=== PATIENT | female | born 1945 | race American Indian/Alaskan Native ===

== ENCOUNTER 2017-05-31 01:19 | Emergency (ER) | payer OTHER ==
--- NOTE | 2017-05-31 02:18 | Emergency Department Report ---
ED CPR HPI - General Chief Complaint: Cardiac Arrest/CPR Stated Complaint: CARDIAC ARREST Time Seen by Provider: 05/31/17 01:49 Source: EMS Mode of arrival: Stretcher Limitations: Other - History of Present Illness Initial Comments: Patient is a 72-year-old Female who called 911 because of several hours of shortness of breath and chest discomfort. Patient's granddaughter stated she was having so much trouble breathing. She asked her to call 911. Patient once in the ambulance was having significant air hunger paramedics tried CPAP briefly but the patient lost consciousness and lost her pulse. Patient was intubated had a brief run of V. fib and was defibrillated once in route. Has been established as of this time. - Related Data Home Medications Medication Instructions Recorded Confirmed Last Taken Aspirin [Aspirin BABY CHEW TAB] 81 mg PO DAILY 02/06/15 02/06/15 Unknown Dexlansoprazole (Nf) [Dexilant 60 mg PO DAILY 02/06/15 02/06/15 Unknown (Nf)] Insulin Lispro Prot/Lispro 1 1000units .ROUTE BID 02/06/15 02/06/15 Unknown [HumaLOG Mix 75/25 Vial] Oxycodone HCl/Acetaminophen 10 mg PO PRN PRN 02/06/15 02/06/15 Unknown [Percocet 10/325 mg] Rosuvastatin (Nf) [Crestor] 10 mg PO HS 02/06/15 02/06/15 Unknown Valsartan/Hydrochlorothiazide 160 mg PO DAILY 02/12/15 02/12/15 Unknown Previous Rx's Medication Instructions Recorded Last Taken Type Aspirin [Aspirin BABY CHEW TAB] 81 mg PO DAILY tab.chew 02/13/15 Unknown Rx AtorvaSTATin [Lipitor] 20 mg PO QHS #30 tablet 02/13/15 Unknown Rx Clopidogrel Bisulfate [Plavix] 75 mg PO DAILY #30 tablet 02/13/15 Unknown Rx Clopidogrel [Plavix] 75 mg PO QDAY #30 tablet 02/13/15 Unknown Rx Gabapentin [Neurontin] 100 mg PO BID #60 capsule 02/13/15 Unknown Rx Hydrochlorothiazide [HCTZ] 25 mg PO QDAY #30 tablet 02/13/15 Unknown Rx Pantoprazole [Protonix TAB] 40 mg PO DAILY #30 tablet 02/13/15 Unknown Rx Valsartan [Diovan] 160 mg PO DAILY #30 tablet 02/13/15 Unknown Rx hydrALAZINE [Apresoline TAB] 50 mg PO Q8HR #90 tablet 02/13/15 Unknown Rx oxyCODONE /ACETAMINOPHEN [Percocet 1 tab PO Q6H PRN #60 tablet 02/13/15 Unknown Rx 5/325 mg] Allergies Allergy/AdvReac Type Severity Reaction Status Date / Time No Known Allergies Allergy Unverified 07/11/13 13:49 ED Review of Systems ROS: Stated complaint: CARDIAC ARREST Other details as noted in HPI Comment: Unobtainable due to pts medical conditions ED Past Medical Hx - Past Medical History Previous Medical History?: Yes Hx Hypertension: Yes Hx Diabetes: Yes - Surgical History Past Surgical History?: Yes Hx Breast Surgery: Yes () - Social History Smoking Status: Unknown if ever smoked - Medications Home Medications: Home Medications Medication Instructions Recorded Confirmed Last Taken Type Aspirin [Aspirin BABY CHEW TAB] 81 mg PO DAILY 02/06/15 02/06/15 Unknown History Dexlansoprazole (Nf) [Dexilant 60 mg PO DAILY 02/06/15 02/06/15 Unknown History ([place])] Insulin Lispro Prot/Lispro 1 1000units .ROUTE BID 02/06/15 02/06/15 Unknown History [HumaLOG Mix 75/25 Vial] Oxycodone HCl/Acetaminophen 10 mg PO PRN PRN 02/06/15 02/06/15 Unknown History [Percocet 10/325 mg] Rosuvastatin (Nf) [Crestor] 10 mg PO HS 02/06/15 02/06/15 Unknown History Valsartan/Hydrochlorothiazide 160 mg PO DAILY 02/12/15 02/12/15 Unknown History Aspirin [Aspirin BABY CHEW TAB] 81 mg PO DAILY tab.chew 02/13/15 Unknown Rx AtorvaSTATin [Lipitor] 20 mg PO QHS #30 tablet 02/13/15 Unknown Rx Clopidogrel Bisulfate [Plavix] 75 mg PO DAILY #30 tablet 02/13/15 Unknown Rx Clopidogrel [Plavix] 75 mg PO QDAY #30 tablet 02/13/15 Unknown Rx Gabapentin [Neurontin] 100 mg PO BID #60 capsule 02/13/15 Unknown Rx Hydrochlorothiazide [HCTZ] 25 mg PO QDAY #30 tablet 02/13/15 Unknown Rx Pantoprazole [Protonix TAB] 40 mg PO DAILY #30 tablet 02/13/15 Unknown Rx Valsartan [Diovan] 160 mg PO DAILY #30 tablet 02/13/15 Unknown Rx hydrALAZINE [Apresoline TAB] 50 mg PO Q8HR #90 tablet 02/13/15 Unknown Rx oxyCODONE /ACETAMINOPHEN [Percocet 1 tab PO Q6H PRN #60 tablet 02/13/15 Unknown Rx 5/325 mg] ED Physical Exam - General Limitations: Other General appearance: obtunded - Head Head exam: Present: atraumatic - Eye Eye exam: Present: other (pupils are fixed and dilated) - ENT ENT exam: Present: mucous membranes moist - Neck Neck exam: Present: normal inspection - Respiratory Respiratory exam: Present: other (no spontaneous breath sounds) - Cardiovascular Cardiovascular Exam: Present: other (no spontaneous heart tones) - GI/Abdominal GI/Abdominal exam: Present: soft, distended ED Medical Decision Making - Medical Decision Making IV was established. Endotracheal tube. To be in good place with equal breath sounds with bagging. CPR was initiated. We did follow ACLS protocols. Patient was having runs of PEA that was in bradycardia down. Patient sees several doses of epi by car. Patient's glucose was 200 at the time of arrival. Patient was pronounced here in emergency department. Critical care attestation.: If time is entered above; I have spent that time in minutes in the direct care of this critically ill patient, excluding procedure time. ED Disposition Clinical Impression: Cardiac arrest Disposition: DC-20 Is pt being admited?: No Condition: Stable
[2017-05-31] MEDS ORDERED: ADRENALIN ONE (14:58)
[2017-05-31] MEDS ORDERED: SODIUM BICARBONATE IV ONE (14:58)
[2017-05-31] MEDS ORDERED: CALCIUM CHLORIDE IV ONE (14:58)
== END 2017-05-31 12:47 ==
LOC: ED 01:19
DX: I46.9 Cardiac arrest, cause unspecified (principal); I10 Essential (primary) hypertension; E11.9 Type 2 diabetes mellitus without complications
CPT/HCPCS: 92950; 99285; J0171